=== PATIENT | male | born 1965 | race Caucasian/White ===

== ENCOUNTER 2016-03-31 15:18 | Emergency (ER) | payer MEDICAID ==
[~2016-03-31] VITALS: Ht 170.2 cm; Wt 74.0 kg
[2016-03-31 15:22] VITALS: Ht 170.2 cm; Wt 74.0 kg
[2016-03-31] MEDS ORDERED: BACITUD TOP (20:23)
[2016-03-31] MEDS ORDERED: AMOX1TAB10 PO (20:23)
--- NOTE | 2016-03-31 20:32 | ERD ---
ER Documentation Chief Complaint Date/Time DATE: 03/31/16 TIME: 20:25 Chief Complaint DOG BITE ON THE FACE HPI Patient is a 50-year-old male who presents to the emergency department with a dog bite to his face. Patient states that the injury occurred last night. Patient states that his own chihuahua bite him on his left cheek. The dog's vaccinations are up-to-date. Patient denies any excessive bleeding. Patient denies any severe pain. She denies any loss of chewing function or loss of range of motion of his jaw. Patient has not taken any medications or placed any ointment on the affected region. Patient denies any fever, chills, nausea, vomiting, pain. Patient states that he last received a tetanus vaccination 2 years ago. ROS All systems reviewed and are negative except as per history of present illness. Medications Home Meds Active Scripts Amoxicillin/Potassium Clav (Amox-Clav 875-125 mg Tablet) 875-125 mg Tab, 1 TAB PO BID for 10 Days, #20 TAB Prov:BLANCHE MELO PA-C 03/31/16 Bacitracin* (Bacitracin Oint (UD)*) 1 Applic Oint, 1 APPLIC TOP ONCE, #1 BOTTLE APPLY TO Prov:BLANCHE MELO PA-C 03/31/16 Allergies Allergies: Coded Allergies: No Known Allergy (Unverified , 03/31/16) PMhx/Soc Medical and Surgical Hx: pt denies Medical Hx, pt denies Surgical Hx History of Surgery: No Anesthesia Reaction: No Hx Neurological Disorder: No Hx Respiratory Disorders: No Hx Cardiac Disorders: No Hx Psychiatric Problems: No Hx Miscellaneous Medical Probl: No Hx Alcohol Use: No Hx Substance Use: No Hx Tobacco Use: No Smoking Status: Never smoker FmHx Family History: No diabetes Physical Exam Vitals Vital Signs Date Time Temp Pulse Resp B/P Pulse Ox O2 Delivery O2 Flow Rate FiO2 03/31/16 15:22 97.9 79 18 130/78 98 Physical Exam GENERAL: Well-developed, well-nourished male. Appears in no acute distress. Speaking in full sentences. HEAD: Normocephalic, atraumatic. FACE: Superficial abrasions noted to the left. +Scabbing of lesions. No active bleeding. No active discharge. No surrounding erythema, swelling, or lymphatic streaking. No injury to muscle belly. EYES: Pupils are equally reactive bilaterally. EOMs grossly intact. No conjunctival erythema. ENT: Moist mucous membranes. No uvula deviation. No kissing tonsils. Normal range of motion of jaw. Patient is able to open and close mouth without any difficulty. NECK: Supple. No lymphadenopathy or thyromegaly. No meningismus. LUNG: Clear to auscultation bilaterally. No rhonchi, wheezing, rales or coarse breath sounds. HEART: Regular rate and rhythm. No murmurs, rubs or gallops. EXTREMITIES: Equal pulses bilaterally. No peripheral clubbing, cyanosis or edema. No unilateral leg swelling. NEUROLOGIC: Alert and oriented. Moving all four extremities without any difficulty. Normal speech. Steady gait. SKIN: Normal color. Warm and dry. No rashes or lesions. Procedures/MDM MEDICAL DECISION MAKING: This is a 50-year-old male who presents with abrasions to his left cheek after being bit by his own dog. Vital signs were reviewed. Patient was afebrile. Patient is not diabetic. Patient reported being UTD with tetanus vaccination. Given these findings, the patients presentation is most consistent with abrasions secondary to dog bite. I have a much lower clinical concern for sepsis , gangrene, abscess, cellulitis, anaphylaxis, allergic reaction, contact dermatitis, rabies. PRESCRIPTIONS: Augmentin Bacitracin DISCHARGE: At this time, patient is stable for discharge and outpatient management. I have advised the patient to avoid scratching the lesions. I have instructed the patient to follow-up with his/her primary care physician in 1-2 days. I have instructed the patient to promptly return to the ER at any time for any new or worsening symptoms including increased pain, fever, redness, swelling, warmth, difficulty breathing or vomiting. The patient and/or family expressed understanding of and agreement with this plan. All questions were answered. Home care instructions were provided. Departure Diagnosis: Primary Impression: Dog bite Encounter type: initial encounter Qualified Code: W54.0XXA - Dog bite, initial encounter Condition: Stable Patient Instructions: Dog Bite Referrals: COMMUNITY CLINICS YOU HAVE RECEIVED A MEDICAL SCREENING EXAM AND THE RESULTS INDICATE THAT YOU DO NOT HAVE A CONDITION THAT REQUIRES URGENT TREATMENT IN THE EMERGENCY DEPARTMENT. FURTHER EVALUATION AND TREATMENT OF YOUR CONDITION CAN WAIT UNTIL YOU ARE SEEN IN YOUR DOCTORS OFFICE WITHIN THE NEXT 1-2 DAYS. IT IS YOUR RESPONSIBILITY TO MAKE AN APPOINTMENT FOR FOLOW-UP CARE. IF YOU HAVE A PRIMARY DOCTOR --you should call your primary doctor and schedule an appointment IF YOU DO NOT HAVE A PRIMARY DOCTOR YOU CAN CALL OUR PHYSICIAN REFERRAL HOTLINE AT IF YOU CAN NOT AFFORD TO SEE A PHYSICIAN YOU CAN CHOSE FROM THE FOLLOWING [facility] [address] [facility] [address] [facility] [address] [facility] [address] [facility] [address] [facility]. [facility] [address] [facility] YOU HAVE RECEIVED A MEDICAL SCREENING EXAM AND THE RESULTS INDICATE THAT YOU DO NOT HAVE A CONDITION THAT REQUIRES URGENT TREATMENT IN THE EMERGENCY DEPARTMENT. FURTHER EVALUATION AND TREATMENT OF YOUR CONDITION CAN WAIT UNTIL YOU ARE SEEN IN YOUR DOCTORS OFFICE WITHIN THE NEXT 1-2 DAYS. IT IS YOUR RESPONSIBILITY TO MAKE AN APPOINTMENT FOR FOLOW-UP CARE. IF YOU HAVE A PRIMARY DOCTOR --you should call your primary doctor and schedule and appointment IF YOU DO NOT HAVE A PRIMARY DOCTOR YOU CAN CALL OUR PHYSICIAN REFERRAL HOTLINE AT . IF YOU CAN NOT AFFORD TO SEE A PHYSICIAN YOU CAN CHOSE FROM THE FOLLOWING [facility] INSTITUTIONS: [facility] [place] [address] [place] [address] [facility] [address] [place] [address] [facility] [address] [place] [address] Additional Instructions: Return to emergency department for any new or worsening symptoms including fevers, chills, severe pain, redness, swelling, discharge. Complete full course of antibiotics as prescribed. Call your primary care doctor TOMORROW for an appointment during the next 1-2 days.See the doctor sooner or return here if your condition worsens before your appointment time. BLANCHE MELO PA-C Mar 31, 2016 20:32
== END 2016-03-31 21:05 | disposition home or self-care (01) ==
LOC: FTE 15:18
DX: S01.452A Open bite of left cheek and temporomandibular area, initial encounter (principal); W54.0XXA Bitten by dog, initial encounter; Y92.9 Unspecified place or not applicable
CPT/HCPCS: 99283